=== PATIENT | female | born 1985 | race Caucasian/White ===

== ENCOUNTER 2022-06-01 10:29 | Outpatient (CLI) | payer BC, SELFPAY ==
[2022-06-01 13:45] LABS: Albumin* 4.8 g/dL (3.3-5.0)
[2022-06-01 13:46] LABS: Chloride* 103 mmol/L (96-114); Potassium* 4.3 mmol/L (3.6-5.1); Sodium* 141 mmol/L (135-149)
[2022-06-01 13:48] LABS: Aspartate Amino Transferase* 24 U/L (12-35); Bilirubin Total* 0.6 mg/dL (0.1-1.5); Carbon Dioxide* 30 mmol/L (20-32); Cholesterol* 196 mg/dL (90-199); Creatinine* 0.6 mg/dL (0.5-1.5); Estimated Glomerular Filt Rate 121 ml/min; Total Protein* 7.8 g/dL (6.0-8.3)
[2022-06-01 13:49] LABS: Alanine Aminotransferase* 19 U/L (4-35); Alkaline Phosphatase* 60 U/L (40-150); Blood Urea Nitrogen* 12 mg/dL (5-24); Calcium* 9.9 mg/dL (8.4-10.6); Glucose* 92 mg/dL (60-115); HDL Cholesterol* 57 mg/dL (>=50); LDL Cholesterol Calculated 114 mg/dL (<100); Triglycerides* 124 mg/dL (40-149)
== END 2022-06-01 10:30 | disposition home or self-care (01) ==
PROVIDERS: PCP Physician Assistant Medical; Visit Provider Physician Assistant Medical
DX: Z00.00 Encounter for general adult medical examination without abnormal findings (principal); Z13.6 Encounter for screening for cardiovascular disorders; Z13.29 Encounter for screening for other suspected endocrine disorder
CPT/HCPCS: 80053; 80061; 84443

== ENCOUNTER 2024-07-10 07:18 | Outpatient (CLI) | payer BC, SELFPAY | END 2024-07-10 07:19 | disposition home or self-care (01) | PROVIDERS: PCP Physician Assistant Medical; Visit Provider Physician Assistant Medical | DX: Z13.228 Encounter for screening for other metabolic disorders (principal); Z13.220 Encounter for screening for lipoid disorders; Z13.29 Encounter for screening for other suspected endocrine disorder | CPT/HCPCS: 80053; 80061; 84443 ==